=== PATIENT | male | born 1940 | race Caucasian/White ===

== ENCOUNTER 2017-06-15 18:25 | Inpatient (IN) | payer MEDICARE, OTHER ==
[~2017-06-15] VITALS: Ht 182.9 cm; Wt 79.8 kg
[2017-06-15 19:06] LABS: BASOPHILS % (AUTO) 0.2 % (0.0-2.0); EOSINOPHILS % (AUTO) 0.9 % (0.0-6.0); HEMATOCRIT 36 % (39-51); HEMOGLOBIN 12.3 g/dL (13.5-17.5); LYMPHOCYTES # (AUTO) 0.9 /CMM (0.8-4.8); LYMPHOCYTES % (AUTO) 19.4 % (20.0-44.0); MEAN CORPUSCULAR HEMOGLOBIN 33 PG (26.0-33.0); MEAN CORPUSCULAR HGB CONC 34 g/dl (31.0-36.0); MEAN CORPUSCULAR VOLUME 95 fL (80-96); MONOCYTES # (AUTO) 0.4 /CMM (0.1-1.30); MONOCYTES % (AUTO) 9.7 % (2.0-12.0); NEUTROPHILS # (AUTO) 3.2 /CMM (1.8-8.9); NEUTROPHILS % (AUTO) 69.8 % (43.0-81.0); PLATELET COUNT (AUTO) 188 /CMM (150-450); RDW COEFFICIENT OF VARIATION 13.4 (11.5-15.0); RED BLOOD CELL COUNT(AUTO) 3.78 MIL/uL (4.5-6.0); WHITE BLOOD COUNT (AUTO) 4.5 K/uL (4.3-11.0)
[2017-06-15 19:16] LABS: CALCIUM, SERUM 9.3 mg/dL (8.5-10.1); CARBON DIOXIDE 30 mmol/L (21-32); CHLORIDE 101 mmol/L (98-107); GLUCOSE 130 mg/dL (74-106); SODIUM SERUM 136 mmol/L (136-145); UREA NITROGEN, BLOOD 17 mg/dL (7-18)
[2017-06-15 19:23] LABS: ALANINE AMINOTRANSFERASE 35 U/L (12-78); ALBUMIN 3.2 g/dL (3.4-5.0); ALCOHOL, BLOOD < 3 mg/dL (0-0); ALKALINE PHOSPHATASE 66 U/L (46-116); ASPARTATE AMINOTRANSFERASE 28 U/L (15-37); BILIRUBIN,DIRECT 0.2 mg/dL (0.0-0.2); BILIRUBIN,TOTAL 0.7 mg/dL (0.2-1.0)
[2017-06-15 19:28] LABS: ACETAMINOPHEN 0 ug/ml (10-30); SALICYLATE 0.2 mg/dL (2.8-20.0)
[2017-06-15 21:33] LABS: APPEARANCE,URINE Slightly Cloudy (CLEAR); BILIRUBIN,URINE Negative (NEGATIVE); BLOOD, URINE Negative Ery/uL (NEGATIVE); COLOR,URINE Yellow (YELLOW); KETONES,URINE Negative (NEGATIVE); LEUKOCYTE ESTERASE ,URINE Negative (NEGATIVE); NITRITE, URINE Negative (NEGATIVE); PROTEIN,URINE Negative (NEGATIVE); UGLUCOSE Negative (NEGATIVE)
[2017-06-15] MEDS ORDERED: TEMAZEPAM 7.5 MG CAPSULE ONE (22:21)
[2017-06-15] MEDS: TEMAZEPAM 7.5 MG CAPSULE PO PRN (22:23)
[2017-06-15] MEDS ORDERED: ACETAMINOPHEN 325 MG TABLET PO PRN (22:30)
[2017-06-15] MEDS ORDERED: MAG HYDROX/AL HYDROX/SIMETH 30 ML UDC PO PRN (22:30)
[2017-06-15] MEDS ORDERED: ASPI-605 PO (23:30)
[2017-06-15] MEDS ORDERED: FLUT1DIS3 INH (23:30)
[2017-06-15] MEDS ORDERED: CICL12.52 NS (23:30)
[2017-06-15] MEDS ORDERED: ESCI10TA PO (23:30)
[2017-06-15] MEDS ORDERED: ALBU8.5H2 INH (23:30)
[2017-06-15] MEDS ORDERED: SIMV20TA6 PO (23:30)
[2017-06-15] MEDS ORDERED: LEVO137T2 PO (23:30)
[2017-06-16] MEDS ORDERED: ALBUTEROL SULFATE 8 GM HFA.AER.AD NEB PRN (00:30)
[2017-06-16] MEDS ORDERED: FLUTICASONE/SALMETEROL DISKUS IH PRN (00:30)
[2017-06-16] MEDS ORDERED: clonazePAM 0.5 MG TABLET ONE (00:51)
[2017-06-16] MEDS: clonazePAM 0.5 MG TABLET PO PRN ×2 (00:55→09:47)
[2017-06-16 07:46] LABS: CHOLESTEROL 156 mg/dL (<200); HDL CHOLESTEROL 62 mg/dL (40-60); LDL 81 mg/dL (0-99); TRIGLYCERIDES 59 mg/dL (30-150)
[2017-06-16 07:50] LABS: CREATININE 0.8 mg/dL (0.6-1.3)
[2017-06-16 08:00] VITALS: BP 160/82
[2017-06-16] MEDS: FLUTICASONE/VILANTEROL 1 EACH BLST.W.DEV IH SCH (09:00)
[2017-06-16] MEDS: FLUTICASONE PROPIONATE 16 GM BOTTLE NS SCH (09:00)
[2017-06-16] MEDS: ASPIRIN EC 81 MG TABLET.DR PO SCH (09:46)
[2017-06-16] MEDS: LEVOTHYROXINE SODIUM 137 MCG TABLET PO SCH (09:46)
[2017-06-16] MEDS: ESCITALOPRAM OXALATE (10 MG) 10 MG TABLET PO SCH (12:21)
[2017-06-16] MEDS: Z GUARD REMEDY 4 OZ OINT TP SCH (12:30)
[2017-06-16 15:34] VITALS: BP 163/87
[2017-06-16] MEDS: SIMVASTATIN 20 MG TABLET PO SCH (18:22)
[2017-06-16 20:00] VITALS: BP 149/75
[2017-06-16] MEDS ORDERED: MIRTAZAPINE 15 MG TABLET PO SCH (20:00)
[2017-06-16] MEDS: TEMAZEPAM 7.5 MG CAPSULE PO PRN (23:31)
[2017-06-17] MEDS: clonazePAM 0.5 MG TABLET PO PRN (01:49)
[2017-06-17 08:00] VITALS: BP 155/72
[2017-06-17] MEDS: ESCITALOPRAM OXALATE (10 MG) 10 MG TABLET PO SCH (08:26)
[2017-06-17] MEDS: LEVOTHYROXINE SODIUM 137 MCG TABLET PO SCH (08:27)
[2017-06-17] MEDS: ASPIRIN EC 81 MG TABLET.DR PO SCH (08:27)
[2017-06-17] MEDS: FLUTICASONE PROPIONATE 16 GM BOTTLE NS SCH (09:16)
[2017-06-17] MEDS: FLUTICASONE/VILANTEROL 1 EACH BLST.W.DEV IH SCH (09:16)
[2017-06-17] MEDS: Z GUARD REMEDY 4 OZ OINT TP SCH (09:17)
[2017-06-17 16:31] VITALS: BP 164/78
[2017-06-17] MEDS: SIMVASTATIN 20 MG TABLET PO SCH (17:35)
[2017-06-17 20:12] VITALS: BP 132/52
[2017-06-17] MEDS: MAGNESIUM HYDROXIDE 30 ML UDC PO PRN (21:20)
[2017-06-17] MEDS: TEMAZEPAM 7.5 MG CAPSULE PO PRN (21:20)
[2017-06-17] MEDS: MIRTAZAPINE 15 MG TABLET PO SCH (21:20)
[2017-06-18] MEDS ORDERED: HYDROCODONE/APAP 5/325MG 1 EACH TABLET PO PRN (01:30)
[2017-06-18] MEDS: LEVOTHYROXINE SODIUM 137 MCG TABLET PO SCH (07:45)
[2017-06-18 08:08] VITALS: BP 137/64
[2017-06-18] MEDS: FLUTICASONE PROPIONATE 16 GM BOTTLE NS SCH (08:16)
[2017-06-18] MEDS: ASPIRIN EC 81 MG TABLET.DR PO SCH (08:16)
[2017-06-18] MEDS: ESCITALOPRAM OXALATE (10 MG) 10 MG TABLET PO SCH (08:16)
[2017-06-18] MEDS: FLUTICASONE/VILANTEROL 1 EACH BLST.W.DEV IH SCH (08:16)
[2017-06-18] MEDS: Z GUARD REMEDY 4 OZ OINT TP SCH (09:00)
[2017-06-18] MEDS: MAGNESIUM HYDROXIDE 30 ML UDC PO PRN (11:06)
[2017-06-18] MEDS: busPIRone 5 MG TABLET PO SCH ×2 (12:39→16:19)
[2017-06-18] MEDS ORDERED: BISACODYL SUPP (10 MG) 10 MG/SUPP.RECT SUPP.RECT RC PRN (15:00)
[2017-06-18] MEDS ORDERED: BISACODYL SUPP (10 MG) 10 MG/SUPP.RECT SUPP.RECT RC ONE (15:00)
[2017-06-18] MEDS ORDERED: BISACODYL (5 MG) 5 MG TABLET.DR PO ONE ×2 (15:00)
[2017-06-18 15:39] VITALS: BP 105/51
[2017-06-18] MEDS: SIMVASTATIN 20 MG TABLET PO SCH (17:02)
[2017-06-18 20:00] VITALS: BP 106/55
[2017-06-18] MEDS: MIRTAZAPINE 15 MG TABLET PO SCH (21:15)
[2017-06-18 21:20] VITALS: BP 110/62
[2017-06-19 07:57] VITALS: BP 143/70
[2017-06-19] MEDS: FLUTICASONE/VILANTEROL 1 EACH BLST.W.DEV IH SCH (08:29)
[2017-06-19] MEDS: FLUTICASONE PROPIONATE 16 GM BOTTLE NS SCH (08:29)
[2017-06-19] MEDS: LEVOTHYROXINE SODIUM 137 MCG TABLET PO SCH (08:29)
[2017-06-19] MEDS: busPIRone 5 MG TABLET PO SCH ×3 (08:30→17:03)
[2017-06-19] MEDS: ASPIRIN EC 81 MG TABLET.DR PO SCH (08:30)
[2017-06-19] MEDS: Z GUARD REMEDY 4 OZ OINT TP SCH (08:34)
[2017-06-19 16:00] VITALS: BP 141/71
[2017-06-19] MEDS: SIMVASTATIN 20 MG TABLET PO SCH (17:03)
[2017-06-19] MEDS: GUAIFENESIN 300 MG/15 ML UDC PO PRN (17:03)
[2017-06-19] MEDS: MAGNESIUM HYDROXIDE 30 ML UDC PO PRN (18:44)
[2017-06-19 20:05] VITALS: BP 131/62
[2017-06-19] MEDS: MIRTAZAPINE 15 MG TABLET PO SCH (21:12)
[2017-06-19] MEDS: TEMAZEPAM 7.5 MG CAPSULE PO PRN (23:58)
[2017-06-20 08:00] VITALS: BP 157/64
[2017-06-20] MEDS: ASPIRIN EC 81 MG TABLET.DR PO SCH (08:15)
[2017-06-20] MEDS: busPIRone 5 MG TABLET PO SCH ×3 (08:15→16:07)
[2017-06-20] MEDS: LEVOTHYROXINE SODIUM 137 MCG TABLET PO SCH (08:15)
[2017-06-20] MEDS: FLUTICASONE PROPIONATE 16 GM BOTTLE NS SCH (08:16)
[2017-06-20] MEDS: FLUTICASONE/VILANTEROL 1 EACH BLST.W.DEV IH SCH (08:16)
[2017-06-20] MEDS: Z GUARD REMEDY 4 OZ OINT TP SCH (08:24)
[2017-06-20 16:00] VITALS: BP 149/87
[2017-06-20] MEDS: MAGNESIUM HYDROXIDE 30 ML UDC PO PRN (17:17)
[2017-06-20] MEDS: SIMVASTATIN 20 MG TABLET PO SCH (17:17)
[2017-06-20 20:00] VITALS: BP 126/57
[2017-06-20] MEDS: MIRTAZAPINE 15 MG TABLET PO SCH (21:52)
[2017-06-21] MEDS: TEMAZEPAM 7.5 MG CAPSULE PO PRN (00:11)
[2017-06-21 08:21] VITALS: BP 156/95
[2017-06-21] MEDS: LEVOTHYROXINE SODIUM 137 MCG TABLET PO SCH (08:57)
[2017-06-21] MEDS: busPIRone 5 MG TABLET PO SCH ×3 (08:57→16:29)
[2017-06-21] MEDS: ASPIRIN EC 81 MG TABLET.DR PO SCH (08:57)
[2017-06-21] MEDS: FLUTICASONE/VILANTEROL 1 EACH BLST.W.DEV IH SCH (08:59)
[2017-06-21] MEDS: FLUTICASONE PROPIONATE 16 GM BOTTLE NS SCH (08:59)
[2017-06-21] MEDS: Z GUARD REMEDY 4 OZ OINT TP SCH (09:00)
[2017-06-21] MEDS: ALBUTEROL FS 2.5 MG/0.5 ML VIAL.NEB NEB PRN (12:20)
[2017-06-21 16:18] VITALS: BP 115/50
[2017-06-21] MEDS ORDERED: BOOST PLUS FOOD-CHOCLATE 237 ML BOX PO SCH (17:00)
[2017-06-21] MEDS: SIMVASTATIN 20 MG TABLET PO SCH (18:04)
[2017-06-21 20:00] VITALS: BP 115/68
[2017-06-21 20:31] VITALS: BP 93/48
[2017-06-21] MEDS: MIRTAZAPINE 15 MG TABLET PO SCH (21:07)
[2017-06-21 23:00] VITALS: BP 115/68
[2017-06-22 08:00] VITALS: BP 125/59
[2017-06-22] MEDS: ASPIRIN EC 81 MG TABLET.DR PO SCH (08:25)
[2017-06-22] MEDS: LEVOTHYROXINE SODIUM 137 MCG TABLET PO SCH (08:25)
[2017-06-22] MEDS: busPIRone 5 MG TABLET PO SCH ×3 (08:25→16:37)
[2017-06-22] MEDS: Z GUARD REMEDY 4 OZ OINT TP SCH (08:31)
[2017-06-22] MEDS: BOOST PLUS FOOD-VANILLA 237 ML BOX PO SCH ×2 (08:50→16:31)
[2017-06-22] MEDS ORDERED: FLUTICASONE PROPIONATE 16 GM BOTTLE NS SCH (09:00)
[2017-06-22] MEDS: FLUTICASONE/VILANTEROL 1 EACH BLST.W.DEV IH SCH (09:07)
[2017-06-22] MEDS: FLUTICASONE PROPIONATE 16 GM BOTTLE NS SCH (09:08)
[2017-06-22 16:00] VITALS: BP 114/51
[2017-06-22] MEDS: SIMVASTATIN 20 MG TABLET PO SCH (17:18)
[2017-06-22] MEDS: GUAIFENESIN 300 MG/15 ML UDC PO PRN (17:42)
[2017-06-22] MEDS: ALBUTEROL FS 2.5 MG/0.5 ML VIAL.NEB NEB PRN (18:25)
[2017-06-22 20:06] VITALS: BP 102/50
[2017-06-22] MEDS: MIRTAZAPINE 15 MG TABLET PO SCH (21:22)
[2017-06-23] MEDS: TEMAZEPAM 7.5 MG CAPSULE PO PRN (00:03)
[2017-06-23 08:00] VITALS: BP 142/64
[2017-06-23] MEDS: ASPIRIN EC 81 MG TABLET.DR PO SCH (08:01)
[2017-06-23] MEDS: BOOST PLUS FOOD-VANILLA 237 ML BOX PO SCH (08:02)
[2017-06-23] MEDS: busPIRone 5 MG TABLET PO SCH ×2 (08:02→13:08)
[2017-06-23] MEDS: FLUTICASONE PROPIONATE 16 GM BOTTLE NS SCH (08:06)
[2017-06-23] MEDS: FLUTICASONE/VILANTEROL 1 EACH BLST.W.DEV IH SCH (08:06)
[2017-06-23] MEDS: Z GUARD REMEDY 4 OZ OINT TP SCH (08:07)
[2017-06-23] MEDS: LEVOTHYROXINE SODIUM 137 MCG TABLET PO SCH (08:08)
== END 2017-06-23 15:45 | DRG 885 ==
LOC: ER 18:29 → GPS 20:13 → UNDODISIN 06-21 11:25
PROVIDERS: ADMIT Psychiatry & Neurology Psychiatry; ATTEND Psychiatry & Neurology Psychiatry
DX: F33.2 Major depressive disorder, recurrent severe without psychotic features (principal); J44.9 Chronic obstructive pulmonary disease, unspecified; D63.8 Anemia in other chronic diseases classified elsewhere; F29 Unspecified psychosis not due to a substance or known physiological condition; F41.9 Anxiety disorder, unspecified; G47.00 Insomnia, unspecified; Z79.899 Other long term (current) drug therapy; Z79.82 Long term (current) use of aspirin; I10 Essential (primary) hypertension; F41.0 Panic disorder [episodic paroxysmal anxiety]; E78.5 Hyperlipidemia, unspecified; E03.9 Hypothyroidism, unspecified; Z95.0 Presence of cardiac pacemaker; Z85.89 Personal history of malignant neoplasm of other organs and systems; Z73.6 Limitation of activities due to disability; J45.909 Unspecified asthma, uncomplicated; R29.6 Repeated falls; R73.9 Hyperglycemia, unspecified
CPT/HCPCS: 36415; 80048-TC; 80061-TC; 80076-TC; 80305; 81000-TC; 82565-TC; 85025-TC; 97116-TC; 97530-TC; A4606; A6253; A6402; A6403; G0480